=== PATIENT | female | born 1990 | race Caucasian/White ===

== ENCOUNTER 2023-05-23 00:05 | Inpatient (IN) | payer OTHER, SELFPAY ==
[2023-05-23] VITALS (106 sets, daily range): BP systolic 72–190; BP diastolic 48–141; PULSE 61–124; TEMP 36.1–37; O2SAT 95–99
--- NOTE | 2023-05-23 01:01 | LDADM ---
This patient, Henrietta Mansfield, was admitted to Labor/Delivery/Recovery 104 on 05/23/23 at 00:05. Plans for labor, pain management and were discussed with patient. Patient/family oriented to hospital policies and general routines including ID bracelet, bed and alarms, visiting hours, pain management, procedures, bathroom and other care routines, personal items, smoking policy, room service/diet and guest tray routines, security routines, and visiting hours. Patient/Family are encouraged to report perceived risks to care and to ask questions if they do not understand what they are told or what they should do. See OBIX for further documentation.
[2023-05-23 01:16] LABS: Basophils Percent Auto 0.4 % (0.2-1.2); Eosinophils Absolute Auto 0.1 K/mm3 (0-0.3); Eosinophils Percent Auto 0.9 % (0-4.4); Hematocrit 31.1 % (37.0-47.0); Hemoglobin 10.6 g/dL (12.0-15.0); Immature Granulocyte Absolute 0.07 K/mm3 (0.00-0.031); Immature Granulocyte Percent A 0.9 % (0-0.5); Lymphocytes Absolute Auto 1.89 K/mm3 (0.9-3.2); Lymphocytes Percent Auto 23.5 % (18.3-44.2); Mean Corpuscular HGB Conc 34.1 g/dl (32-36); Mean Corpuscular Volume 90.9 fl (80-100); Mean Platelet Volume 12.1 fl (7.4-10.4); Monocytes Absolute Auto 0.5 K/mm3 (0.1-0.6); Monocytes Percent Auto 6.2 % (2.6-8.5); Neutrophils Absolute Auto 5.5 K/mm3 (1.3-6.7); Neutrophils Percent Auto 68.1 % (45.5-73.1); Platelet Count Result 178 k/mm3 (150-375); Red Blood Count 3.42 M/mm3 (4.2-5.4)
[2023-05-23] MEDS: DINOPROSTONE 10 MG VAG INSERT VAGINAL (01:23)
[2023-05-23] MEDS: LACTATED RINGERS 1,000 ML 125 ML IV CONT (02:16)
[2023-05-23] MEDS: AMPICILLIN 2 GM/NS 100 ML 2 GM/100 ML BAG IVPB (02:17)
[2023-05-23] MEDS: AMPICILLIN 1 GM/NS 50 ML 1 GM/50 ML BAG IVPB ×5 (06:46→23:53)
--- NOTE | 2023-05-23 08:56 | WPDOBADMIT ---
Obstetrics - Admit Note Admission Note: record reviewed. Additions to the history and/or subsequent changes in the physical findings follow. 32 y/o G1 at 39 2/7 weeks here desiring induction of labor. GBS pos. EFW 7#9oz three weeks ago. Cervidil overnight. AVSS NST reactive TOCO: irregular contractions ABD soft, nontender, gravid, vertex EXT nontender A: IUP at term, here for induction of labor. EFW approximately 9# now. GBS pos. P: Cervidil in place. Will remove at 12 hours and evaluate cervix. Ampicillin.
[2023-05-23 09:58] LABS: Rapid Plasma Reagin Non-Reactive (NonReactive)
--- NOTE | 2023-05-23 13:17 | PM.OBPNLAB ---
Pain Control Date/time seen: 05/23/23 13:17 Comments: Feeling some contractions. Pelvic Exam Dilation (cm): 1 Effacement (%): 50 station: -2 Comments: Cervidil withdrawn. AROM with clear fluid. Contractions Contraction pattern: Irregular Status status: Category l Assessment and Plan Comments: Begin oxytocin. Continue ampicillin. Anticipate .
[2023-05-23] MEDS: OXYTOCIN 30 UNITS/NS 500 ML 30 UNITS/500 ML BAG IV CONT (15:05)
--- NOTE | 2023-05-23 17:29 | PM.OBPNLAB ---
Pain Control Date/time seen: 05/23/23 17:29 Comments: Feeling contractions. Pelvic Exam Dilation (cm): 2 Effacement (%): 80 station: -2 Comments: IUPC placed Contractions Contraction frequency: 2 Contraction pattern: Irregular Status status: Category l Assessment and Plan Pitocin rate (mU/min): 6 Comments: Continue oxytocin.
[2023-05-24] VITALS (192 sets, daily range): BP systolic 100–139; BP diastolic 33–105; PULSE 50–164; RESP 14–18; TEMP 36.7–37.4; O2SAT 84–100
[2023-05-24] MEDS: FAMOTIDINE 20 MG/2 ML VIAL IV PUSH (03:14)
[2023-05-24] MEDS: LACTATED RINGERS 1,000 ML 125 ML IV CONT (03:17)
[2023-05-24] MEDS: AMPICILLIN 1 GM/NS 50 ML 1 GM/50 ML BAG IVPB ×2 (03:57→07:40)
--- NOTE | 2023-05-24 08:53 | PM.OBPNLAB ---
Pain Control Date/time seen: 05/24/23 08:53 Comments: Pain OK. Pushing. Pelvic Exam Dilation (cm): 10 Effacement (%): 100 station: +1 Contractions Contraction frequency: 3 Contraction pattern: Regular Status status: Category l Assessment and Plan Comments: Continue pushing.
--- NOTE | 2023-05-24 11:00 | PM.OBPNLAB ---
Pain Control Date/time seen: 05/24/23 11:00 Comments: Has been pushing for 3 hours. No significant progress. Pelvic Exam Dilation (cm): 10 Effacement (%): 100 station: +1 Contractions Contraction frequency: 3 Contraction pattern: Regular Status status: Category l Assessment and Plan Comments: A: Arrest of descent in labor. P: Offered primary . She understands risks of surgery to include risks of anesthesia, risks of pain, infection, bleeding, blood products, thromboembolic phenomena and damage to adjacent structures such as bowel, bladder, ureters, blood vessels and nerves. She understands all these risks and elects to proceed with surgery.
[2023-05-24] MEDS: ceFAZolin 2 GM/D5W 50 ML 2 GM/50 ML BAG IVPB (11:20)
[2023-05-24] MEDS: AZITHROMYCIN 500 MG/NS 250 ML 500 MG/250 ML BAG 250 MG IVPB (11:25)
--- NOTE | 2023-05-24 12:09 | PM.OBPRVD ---
OB - Delivery Note Procedure Delivery date: 05/24/23 Procedure: Primary low transverse Induction method: Per Cervidil Protocol Delivery augmentation: Rupture of Membranes and Pitocin Delivery monitor: External FHT, External Uterine and Internal Uterine Route of delivery: Specimen: Yes (cord blood) Quantitative Blood Loss (ml): 660 Anesthesia type: Epidural Disposition: PACU Complications: None Narrative: The patient was taken to the operating room where she was prepared and draped in the usual sterile fashion in dorsal supine position with a leftward tilt. She received cefazolin and azithromycin preoperatively. Epidural anesthesia was found to be adequate. A Pfannenstiel skin incision was made and carried through to the underlying layer of the fascia. The fascia was incised in the midline and the incision was extended laterally. The fascia was dissected free of the underlying rectus muscles. The rectus muscles were in the midline. The peritoneum was identified, tented up and entered sharply. The peritoneal incision was extended superiorly and inferiorly with good visualization of the bladder. The bladder blade was placed. The vesicouterine peritoneum was identified, tented up and entered sharply. The incision was extended laterally and the bladder flap was developed. The bladder blade was replaced. The uterus was then incised sharply in a transverse fashion along the lower uterine segment. The incision was extended laterally. The infant's head was delivered atraumatically to the sterile field, followed by the body. The nose and mouth were bulb suctioned. After a delay, the cord was clamped and cut. The was handed off the field. Cord blood was collected. The placenta was removed manually and was passed off the field. The uterus was exteriorized and cleared of all clots and debris. The uterine incision was reapproximated using 0 Monocryl in a running, locked fashion. A second, imbricating layer of the same suture was run. Excellent hemostasis resulted as did excellent reapproximation of the normal anatomy. The uterus was returned the abdomen. The pelvis was irrigated copiously with warmed normal saline. Rigorous hemostasis was assured. The fascial layer was reapproximated using 0 Vicryl in a running fashion. The skin was closed with a running, subcuticular stitch of 4 0 Vicryl. Dermaflex was applied externally. Sponge, lap, needle and instrument counts were correct. The patient was taken to the recovery room in stable condition. The infant went to the nursery in stable condition. I was present and scrubbed the entire procedure. Baby Date of : 05/24/23 Time of : 11:38 Weeks of gestation at delivery: 39 Infant gender: Male Weight (pounds): 9 Weight (ounces): 1 presentation: vertex Placenta delivery description: Manual Removal and Normal Configuration Cord Vessel Description: 3 Vessels and Delayed Cord Clamping score one minute: 8 score five minutes: 9
[2023-05-24] MEDS: KETOROLAC 30 MG/ML VIAL (*BKC) 15 MG IV PUSH (12:40)
[2023-05-24] MEDS: OXYTOCIN 30 UNITS/NS 500 ML 30 UNITS/500 ML BAG 125 UNITS IV CONT (13:38)
[2023-05-24] MEDS: ACETAMINOPHEN 325 MG TABLET 650 MG PO (15:03)
--- NOTE | 2023-05-24 15:10 | OBPPTRN ---
Patient transferred to post room # via stretcher accompanied by spouse and and taken to room 281. PT alert and awake and transferred to bed via maxi air without difficulty. Support person present. PT introductions made and plan of care discussed per post op c section, pain management, breast feeding, daily care activities. PT and spouse both recipients of such instructions and no barriers to learning identified at this time. PT received such instructions via mom baby care guide, one to one discussion and demonstrations this shift. PT oriented to unit, room, information board, rooming in, admission packet and security measures. Patient verbalizes understanding.
[2023-05-24] MEDS: LANOLIN (LANSINOH) 7.5 GM CREAM 1 APPLIC TOPICAL (17:00)
[2023-05-24] MEDS: SIMETHICONE 80 MG TAB.CHEW PO (17:02)
[2023-05-24] MEDS: POLYSACCHARIDE IRON COMPLEX 150 MG CAPSULE PO (17:02)
[2023-05-24] MEDS: KETOROLAC 30 MG/ML VIAL (*BKC) IV PUSH (17:02)
[2023-05-24] MEDS: DOCUSATE SODIUM 100 MG CAPSULE PO (17:02)
[2023-05-24] MEDS: LIDOCAINE 5% PATCH 1 PATCH TRANSDERM (17:03)
--- NOTE | 2023-05-24 17:53 | PC.NURSE ---
1410 Pt recovery finished, will remain on 1st floor until her room is ready upstairs. 1510 Pt moved to OB 2nd floor
[2023-05-24] MEDS: DEXTROSE 5%/0.45% SOD CHL 1,000 ML 125 ML IV CONT (18:00)
[2023-05-24] MEDS: IBUPROFEN 600 MG TABLET PO (23:20)
[2023-05-24] MEDS: HYDROcodone/acetaminophen (*CRX) 5-325 MG TABLET 1 TAB PO (23:20)
[2023-05-25 00:11] VITALS: BP 109/65; PULSE 93; RESP 16; TEMP 36.8; O2SAT 99
[2023-05-25 04:14] VITALS: BP 121/70; PULSE 67; RESP 14; TEMP 36.7; O2SAT 97
[2023-05-25] MEDS: IBUPROFEN 600 MG TABLET PO ×3 (04:50→17:30)
[2023-05-25] MEDS: HYDROcodone/acetaminophen (*CRX) 5-325 MG TABLET 1 TAB PO ×3 (04:50→14:34)
[2023-05-25 05:28] LABS: Basophils Percent Auto 0.3 % (0.2-1.2); Eosinophils Percent Auto 0.3 % (0-4.4); Hematocrit 25.9 % (37.0-47.0); Hemoglobin 8.7 g/dL (12.0-15.0); Immature Granulocyte Absolute 0.17 K/mm3 (0.00-0.031); Immature Granulocyte Percent A 1.1 % (0-0.5); Lymphocytes Absolute Auto 1.81 K/mm3 (0.9-3.2); Mean Corpuscular HGB Conc 33.6 g/dl (32-36); Mean Corpuscular Hemoglobin 31.2 pg (26-34); Mean Corpuscular Volume 92.8 fl (80-100); Mean Platelet Volume 12.4 fl (7.4-10.4); Monocytes Absolute Auto 0.9 K/mm3 (0.1-0.6); Monocytes Percent Auto 5.8 % (2.6-8.5); Neutrophils Absolute Auto 12.1 K/mm3 (1.3-6.7); Neutrophils Percent Auto 80.5 % (45.5-73.1); Platelet Count Result 162 k/mm3 (150-375); Red Blood Count 2.79 M/mm3 (4.2-5.4); Red Cell Distribution Width 12.1 % (11.5-14.5); White Blood Count 15.1 K/mm3 (4.5-10.0)
--- NOTE | 2023-05-25 08:00 | PC.NURSE ---
PT introductions made and plan of care discussed per post op c section, breast feeding, daily care activities and pain management, PT and spouse both recipients of such care and no barriers to learning identified at this time. PT received such instructions per one to one discussion, mom baby care guide and demonstrations. PT verbalized understanding of such care.
[2023-05-25 08:25] VITALS: BP 120/73; PULSE 69; RESP 18; TEMP 36.4; O2SAT 98
[2023-05-25] MEDS: DOCUSATE SODIUM 100 MG CAPSULE PO ×2 (10:13→17:30)
[2023-05-25] MEDS: MULTIVIT/MIN/PREN/FOL AC/IRON TABLET 1 TAB PO (10:13)
[2023-05-25] MEDS: POLYSACCHARIDE IRON COMPLEX 150 MG CAPSULE PO ×2 (10:14→17:30)
[2023-05-25] MEDS: SIMETHICONE 80 MG TAB.CHEW PO (10:14)
--- NOTE | 2023-05-25 10:15 | WPDANLDNPN2 ---
Anes-Prog Note L&D-Neuraxial Date/Time: 05/25/23 10:15 Neuraxial medications: epidural PF morphine Opiod-related complaints: none Patient feedback: Patient satisfied with post-operative pain management.
--- NOTE | 2023-05-25 10:15 | WPDANLDPN2 ---
Anes-Prog Note L&D Date/Time: 05/25/23 10:15 Comfortable throughout: section Neuraxial method: epidural Epidural/Spinal procedure site: clean & non-tender Neuro status: Neuro function grossly intact. Cardiovascular status: normal Respiratory status: normal Airway patency: baseline Mental status: baseline Post-Op hydration status: normal Vital Signs: Last Vital Signs Temp 36.7 C 05/25/23 04:14 Pulse 67 05/25/23 04:14 Resp 14 05/25/23 04:14 BP 121/70 05/25/23 04:14 Pulse Ox 97 05/25/23 04:14 O2 Del Method Room Air 05/24/23 23:20 Pain score (VAS): 3/10 I/O: Intake & Output 05/24/23 05/25/23 05/25/23 23:59 07:59 15:59 Intake Total 740 3500 Output Total 1350 3000 Balance -610 500 Post-procedural complaints: none Patient feedback: Patient satisfied with anesthetic care.
[2023-05-25 10:20] VITALS: PULSE 69; RESP 18; O2SAT 98
--- NOTE | 2023-05-25 13:41 | PC.NURSE ---
1155 Introductions were made, then consulted with patient to assess needs related to . Mother led the conversation with her?plans to feed?her and the?experience so far. Mother works well with her with encouragement and education. Encouraged understanding of the benefits of skin to skin (demonstrating unwrapping and placing upright on her chest), stimulating with massage touch, changing positions to encourage wakefulness, how to watch for early feeding cues, responsive feeding, feeding on demand (aiming for 8-12 times in 24 hours, about every 2-3 hours), milk production, building/maintaining a milk supply, duration of feeding, signs of adequate intake/output and how to record on the feeding sheet. Reviewed positioning and ear, shoulder, hip alignment, supporting the breast to facilitate a deep latch, asymmetrical latch (off-center), leading with the chin with a big, open, wide gape and body close to mother. Infant was last fed at 1110 and parents expressed success with latch and positioning. Mother denies nipple soreness and latched optimally to the both breasts in the football position. Education given to mother of how to visualize suck/swallow ratios and listen for drinking at the breast. Nipple care reviewed with optimal latch and good positioning. Reminding mother of comfort measures of healing with a warm and wet washcloth to rinse breast, then leave open to air-dry as needed. Reviewed good handwashing when or touching the breast/nipples to prevent infection. Resources used to facilitate learning were used with the mom and baby guide. Mother voiced understanding of skin to skin, stimulating with massage touch, responsive feedings, hand expressed colostrum, talking to infant to encourage if it has been 2 -2.5 hours since the start of the last , to call if does not latch, or if there is discomfort with . Resources provided for inpatient/outpatient with business card, feeding sheet and the mom/baby guide. Parents voiced understanding of information, demonstrated learning and will call if there is a request for assistance. Reported to primary RN.
--- NOTE | 2023-05-25 16:06 | PC.NURSE ---
1500 Made purposeful rounds to speak with mom and offer assistance with . Mother is visiting with family and wishes to call for assistance. Encouraged her to contact her RN and request support as needed.
--- NOTE | 2023-05-25 17:13 | PC.NURSE ---
[id number] Purposefully rounded to assess needs. Mother is sitting up on the side of the bed with infant latched cross cradle to the left breast. Mother denies pain. detaches and the nipple is slightly misshaped. Worked with mother on cross cradle on the right breast, then football position on the left. Mother denied pain, demonstrates good rocking jaw motion, swallowing visualized with the dropping of the jaw lower about every 3rd suckle. Mother was encouraged to sit comfortably, support the good latch well and stimulate for active . Parents voiced understanding of information. Encouraged parents to call out for assistance with .
[2023-05-25] MEDS: LIDOCAINE 5% PATCH 1 PATCH TRANSDERM (17:30)
[2023-05-25 20:00] VITALS: BP 124/69; PULSE 72; RESP 18; TEMP 36.6; O2SAT 100
[2023-05-26] MEDS: HYDROcodone/acetaminophen (*CRX) 5-325 MG TABLET 1 TAB PO ×3 (00:30→13:30)
[2023-05-26] MEDS: IBUPROFEN 600 MG TABLET PO ×2 (00:30→09:17)
[2023-05-26 08:05] VITALS: BP 131/83; PULSE 79; RESP 16; TEMP 37.3; O2SAT 99
--- NOTE | 2023-05-26 09:09 | PM.OBPNVD ---
OB - PN: Subj Subjective Date/time seen: 05/25/23 09:09 Narrative: Pain OK. Would like circumcision for son. OB - PN: Obj Data Labs 05/25/23 04:37 OB - PN A/P Plan Comments: A: POD#1, doing well. P: Reviewed circ. Routine care. Exam Narrative: AVSS I/O OK ABD soft, nontender, fundus firm. Incision c/d/i. EXT nontender Psych: Other: AVSS ABD soft, nontender, fundus firm EXT nontender
[2023-05-26] MEDS: MULTIVIT/MIN/PREN/FOL AC/IRON TABLET 1 TAB PO (09:16)
[2023-05-26] MEDS: POLYSACCHARIDE IRON COMPLEX 150 MG CAPSULE PO (09:16)
[2023-05-26] MEDS: DOCUSATE SODIUM 100 MG CAPSULE PO (09:17)
--- NOTE | 2023-05-26 10:00 | PC.NURSE ---
Patient viewed the discharge video Mother & Baby Care, The First Two Weeks . Patient was given the opportunity and encouraged to ask questions. Patient verbalized understanding of information shared and has been given the mother/baby guide for home reference.
--- NOTE | 2023-05-26 12:30 | PM.OBPNVD ---
OB - PN: Subj Subjective Date/time seen: 05/26/23 12:30 Narrative: Pain OK. Tolerating diet. Would like to go home. OB - PN: Obj Data Labs 05/25/23 04:37 OB - PN A/P Plan Comments: A: POD#2, doing well. P: Home to f/u 4 weeks. Exam Narrative: AVSS ABD soft, nontender, fundus firm. Incision c/d/i. EXT nontender
--- NOTE | 2023-05-26 12:35 | PM.OBDSVD ---
DS: Admitting Diagnosis Discharge Date 05/26/23 Admitting Diagnosis IUP at 39 weeks DS: Discharge Diagnosis Discharge Diagnosis (1) Term delivered: Code(s): O80 - Encounter for full-term uncomplicated delivery Status: Acute OB - DS: Summary OB Procedures : None OB Procedures Intrapartum: OB Procedures: : None Peripartum Data Procedures: Procedures Operation Date: 05/24/23 11:15 Actual Procedure Side Surgeon p Section Not Applicable Justyn Sanchez MD Time Spent with Patient Time attestation: Total time spent providing and/or coordinating discharge services: Discharge Plan Discharge Attending physician on discharge: Justyn Sanchez Discharging Clinician: Justyn Sanchez Patient Disposition: Home, Self-Care Activity: may shower, may drive after 2 weeks and pelvic rest Diet: regular Wound Care Instructions: incision open to air Discharge Instructions: Call or return if temperature above 100.4? F, increased abdominal pain, increased vaginal bleeding or any new problems. Stand Alone Forms: General Discharge Information Follow-up/Referrals: Justyn Sanchez MD [Physician] - 4 Weeks Discharge Medications: New ibuprofen 600 mg tablet 600 mg PO Q6H PRN (Reason: cramps) Qty: 30 0RF ferrous sulfate 325 mg (65 mg iron) tablet 325 mg PO DAILY Qty: 30 0RF hydrocodone-acetaminophen 5-325 mg tablet 1 - 2 tablet PO Q6H PRN (Reason: pain) Qty: 30 0RF Continued Classic 28 mg iron- 800 mcg Tablet 1 tablet PO DAILY Date of admission: 05/23/23 00:05 Primary Care Provider: Denton,Kathy Matute Admitting Provider: Justyn Sanchez Attending physician on admission: Justyn Sanchez Condition: Stable
--- NOTE | 2023-05-26 13:40 | PC.NURSE ---
[id number] Purposefully rounded to assess for needs. Mother is demonstrating her ability to independently latch with appropriate positioning/alignment. She denies any nipple discomfort and is responsively . Infant is currently meeting outcomes for weight, output, jaundice and feeding frequencies of 8-12 times in 24 hours. Mother is encouraged to call for assistance if her infant doesn?t latch or there is discomfort with latching. Reminded parents to use good handwashing technique to prevent infection. Mother is feeding appropriately for growth of and understands stimulating infant to eat if needed. Infant has had appropriate feedings in the last 24 hours meets the outcomes for weight, output and jaundice at this time. Mother states she is confident to continue effectively her at home, when to call for assistance and denies any additional assistance or education at this time. Reinforced understanding of milk production, transition of milk, signs of adequate intake, transition of stool, prevention/relief of engorgement, plugged ducts, mastitis, responsive watching for feeding cues, the different methods of stimulating to breastfeed 2-3 hours after the start of the last feeding, community resources and when to call a provider using the resource of the mom and baby guide. Parents voiced understanding of the education shared.
[2023-05-26] MEDS: WITCH HAZEL 40 PADS 1 PAD (14:30)
[2023-05-29 15:45] VITALS: BP 147/91; PULSE 60; RESP 14; TEMP 36.8
== END 2023-05-26 14:30 | disposition home or self-care (01) | DRG 788 ==
LOC: ANHLDR 00:10 → ANHOB2 05-24 15:12
PROVIDERS: Admitting Provider Obstetrics & Gynecology; PCP Nurse Practitioner Family; Visit Provider Obstetrics & Gynecology
PROC: 10D00Z1 Extraction of Products of Conception, Low, Open Approach (ICD-10-PCS; CPT 59514; principal; 2023-05-24 11:15)
DX: O99.824 Streptococcus B carrier state complicating childbirth (principal); Z37.0 Single live birth; Z3A.39 39 weeks gestation of pregnancy; O62.1 Secondary uterine inertia
CPT/HCPCS: 36415; 85025; 86592; 86850; 86900; 86901; A9270; J0290; J0456; J0690; J1885; J2175; J2274; J2405; J2590; J2795; J7120